=== PATIENT | male | born 1935 | race Caucasian/White ===

== ENCOUNTER → 2017-10-02 | Outpatient (CLI) | payer MEDICARE, BC ==
--- NOTE | 2017-10-02 12:29 | RADIOLOGY REPORT (SQ) ---
EXAM DESCRIPTION: CT CHEST WITHOUT COMPLETED DATE/TIME: 10/02/2017 10:42 am REASON FOR STUDY: COPD (J44.9), CHEST PAIN (R07.9), CARRILLO (R06.00), BRONCHITIS (J40), ASBESTOS R91.8 OTHER NONSPECIFIC ABNORMAL FINDING OF LUNG FIELD R07.9 CHEST PAIN, UNSPECIFIED COMPARISON: 04/01/2015 TECHNIQUE: CT scan performed of the chest without intravenous contrast. Images reviewed with lung, soft tissue and bone windows. Reconstructed coronal and sagittal MPR images reviewed. All images st ored on PACS. All CT scanners at this facility use dose modulation, iterative reconstruction, and/or weight based d osing when appropriate to reduce radiation dose to as low as reasonably achievable (ALARA). [facility]: Dose Right [facility]: CareDose [facility]: Dose Right [facility]: Teradose 4D [facility]: [employer] RADIATION DOSE: CT Rad equipment meets quality standard of care and radiation dose reduction techniq ues were employed. CTDIvol: 15.4 mGy. DLP: 622 mGy-cm. mGy. LIMITATIONS: No technical limitations. FINDINGS: LUNGS AND PLEURA: Stable 11 mm nodule lateral to the right heart border. No new nodules. Calcified pleural plaques. No effusions. HILAR AND MEDIASTINAL STRUCTURES: No identified masses or abnormal nodes. No obvious aneurysm. HEART AND VASCULAR STRUCTURES: No aneurysm. No pericardial effusion. UPPER ABDOMEN: No significant findings. Limited exam. THYROID AND OTHER SOFT TISSUES: No masses. No adenopathy. BONES: No significant finding. HARDWARE: None in the chest. OTHER: No other significant findings. IMPRESSION: Stable right middle lobe nodule. TECHNICAL DOCUMENTATION: JOB ID: [id number] Quality ID # [id number]: Final reports with documentation of one or more dose reduction techniques (e.g., Au tomated exposure control, adjustment of the mA and/or kV according to patient size, use of iterative reconstruction technique) 2010 [employer]- All Rights Reserved
== END ==
LOC: RAD 09:57
PROVIDERS: ATTEND Internal Medicine Critical Care Medicine
DX: J40 Bronchitis, not specified as acute or chronic (principal); G47.30 Sleep apnea, unspecified; R91.8 Other nonspecific abnormal finding of lung field; R07.9 Chest pain, unspecified; J45.40 Moderate persistent asthma, uncomplicated; J44.9 Chronic obstructive pulmonary disease, unspecified; R06.00 Dyspnea, unspecified; Z77.090 Contact with and (suspected) exposure to asbestos
CPT/HCPCS: 71250

== ENCOUNTER 2020-07-23 20:21 | Emergency (ER) | payer MEDICARE, BC ==
--- NOTE | 2020-07-23 20:47 | ER Document Report ---
ED Medical Screen (RME) - General Chief Complaint: Fall Stated Complaint: FALL/ FACIAL INJURY Time Seen by Provider: 07/23/20 20:37 Primary Care Provider: NGOC COVARRUBIAS MD [Primary Care Provider] - Follow up as needed Mode of Arrival: Wheelchair Information source: Patient, Relative Notes: 85-year-old male presented to ED for complaint of neck face and head pain. He states he was walking lost his balance and face planted. He does have multiple abrasions and contusions to the face. He complains of neck pain some torticollis and head pain. He states he does not smoke but he does drink daily sometimes beer and whiskey nightly he has 2 shots of whiskey. He states he does have a history of high cholesterol blood pressure high blood pressure gout arthritis and sleep apnea. He states he has no idea how his goal uses BiPAP tonight with the injuries to his face. He is alert oriented respirations regular nonlabored speaking in full sentences. I have greeted and performed a rapid initial assessment of this patient. A comprehensive ED assessment and evaluation of the patient, analysis of test results and completion of medical decision making process will be conducted by an additional ED providers. TRAVEL OUTSIDE OF THE [place] IN LAST 30 DAYS: No - Related Data Allergies/Adverse Reactions: No Known Allergies Allergy (Unverified 05/15/14 15:37) Past Medical History - Social History Frequency of alcohol use: Social - Past Medical History Cardiac Medical History: Reports: Hx Hypercholesterolemia, Hx Hypertension Pulmonary Medical History: Denies: Hx Tuberculosis Endocrine Medical History: Reports: Hx Diabetes Mellitus Type 2 Psychiatric Medical History: Denies: Hx Depression Physical Exam - Vital signs Vitals: Temp Pulse Resp BP Pulse Ox 99 F 85 24 H 133/59 H 94 07/23/20 20:34 07/23/20 20:34 07/23/20 20:34 07/23/20 20:34 07/23/20 20:34 Course - Vital Signs Vital signs: Temp Pulse Resp BP Pulse Ox 99 F 85 24 H 133/59 H 94 07/23/20 20:34 07/23/20 20:34 07/23/20 20:34 07/23/20 20:34 07/23/20 20:34 Doctor's Discharge - Discharge Referrals: NGOC COVARRUBIAS MD [Primary Care Provider] - Follow up as needed
--- NOTE | 2020-07-23 22:04 | RADIOLOGY REPORT (SQ) ---
EXAM DESCRIPTION: CT HEAD WITHOUT IV CONTRAST COMPLETED DATE/TME: 07/23/2020 20:44 CLINICAL HISTORY: 85 years Male Fall face head neck pain COMPARISON: None. TECHNIQUE: Contiguous axial CT images obtained through the brain without IV contrast. This exam was performed according to our department optimization program which includes automated exposure control, adjustment of the mA and/or kv according to patient size and/or use of iterative reconstruction technique. FINDINGS: The ventricles and sulci are prominent consistent with atrophic changes. Microvascular ischemic changes. No midline shift or mass effect. No mass lesions. No acute hemorrhage. Atherosclerotic calcifications. Irregularity of the tip of the nasal bones consistent with acute fracture. No fluid or significant mucosal thickening in the visualized paranasal sinuses. No depressed calvarial fractures. IMPRESSION: Acute fracture of the tip of the nasal bones No acute intracranial abnormality is identified. Generalized atrophy with microvascular ischemic changes.
--- NOTE | 2020-07-23 22:07 | RADIOLOGY REPORT (SQ) ---
EXAM DESCRIPTION: CT CERVICAL SPINE WITHOUT IV CONTRAST COMPLETED DATE/TME: 07/23/2020 20:43 CLINICAL HISTORY: 85 years Male Fall face head neck pain COMPARISON: None. TECHNIQUE: Contiguous axial images obtained through the cervical spine without IV contrast. Coronal and sagittal reformatted images obtained. This exam was performed according to our department optimization program which includes automated exposure control, adjustment of the mA and/or kv according to patient size and/or use of iterative reconstruction technique. FINDINGS: Vertebral body alignment is unremarkable. No acute fractures. Study is significantly limited by patient's body habitus. C2-3: Bilateral neural foraminal narrowing. C3-4: Moderate central canal and severe bilateral neural foraminal stenosis. C4-5: Severe bilateral neural foraminal stenosis. C5-6: Severe bilateral neural foraminal stenosis worse on the right. C6-7: Generalized bulging of the disc with moderate central canal and severe neural foraminal stenosis. Severe neural foraminal stenosis also present in the upper thoracic spine. IMPRESSION: No acute cervical spinal fracture is identified. Limited study secondary to body habitus Multilevel degenerative change
--- NOTE | 2020-07-23 22:10 | RADIOLOGY REPORT (SQ) ---
EXAM DESCRIPTION: CT MAXILLOFACIAL WITHOUT IV CONTRAST COMPLETED DATE/TME: 07/23/2020 20:43 CLINICAL HISTORY: 85 years Male Fall face head neck pain COMPARISON: None. TECHNIQUE: Contiguous axial images obtained through the maxillofacial region without IV contrast. Reformatted images obtained. This exam was performed according to our department optimization program which includes automated exposure control, adjustment of the mA and/or kv according to patient size and/or use of iterative reconstruction technique. FINDINGS: The post septal orbits appear unremarkable. Minimal mucosal thickening in the paranasal sinuses. No air-fluid levels. Dental disease Orbits and maxillofacial bones appear intact. There is fragmentation of the tip of the nasal bones however I suspect that this may be chronic in nature. Anterior nasal spine is intact. 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 Acute injury is not entirely excluded Dental disease
[2020-07-23] MEDS ORDERED: ACETAMINOPHEN 325 MG TABLET PO ONE (22:56)
--- NOTE | 2020-07-23 23:05 | ER Document Report ---
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 Patient states he tripped on a gas line outside while walking to his car and fell forward landing on his face. Patient reports pain in his head, neck, and face. Patient reports history of HTN, DM, HLD, arthritis, and sleep apnea. TRAVEL OUTSIDE OF THE [place] IN LAST 30 DAYS: No - Related Data Allergies/Adverse Reactions: No Known Allergies Allergy (Unverified 05/15/14 15:37) Past Medical History - General Information source: Patient, Relative - Social History Smoking Status: Former Smoker Cigarette use (# per day): No Frequency of alcohol use: Social Family History: Reviewed & Not Pertinent - Past Medical History Cardiac Medical History: Reports: Hx Hypercholesterolemia, Hx Hypertension Pulmonary Medical History: Reports: Hx Sleep Apnea Endocrine Medical History: Reports: Hx Diabetes Mellitus Type 2 Musculoskeletal Medical History: Reports Hx Arthritis Psychiatric Medical History: Denies: Hx Depression Review of Systems - Review of Systems Constitutional: No symptoms reported EENT: No symptoms reported Cardiovascular: No symptoms reported Respiratory: No symptoms reported Gastrointestinal: No symptoms reported Genitourinary: No symptoms reported Male Genitourinary: No symptoms reported Musculoskeletal: See HPI, Neck pain, Other - Head, Face pain Skin: No symptoms reported Hematologic/Lymphatic: No symptoms reported Neurological/Psychological: No symptoms reported -: Yes All other systems reviewed and negative Physical Exam - Vital signs Vitals: Temp Pulse Resp BP Pulse Ox 99 F 85 24 H 133/59 H 94 07/23/20 20:34 07/23/20 20:34 07/23/20 20:34 07/23/20 20:34 07/23/20 20:34 - General General appearance: Appears well, Alert - HEENT Head: Other - mild sts around left eye. abrasions to nose with mild sts.. No: Atraumatic Pupils: PERRL Ears: Normal External canal: Normal Tympanic membrane: Normal Notes: Abrasions to the left forehead and nose. Soft tissue swelling above the left eye. - Respiratory Respiratory status: No respiratory distress Chest status: Nontender Breath sounds: Normal Chest palpation: Normal - Cardiovascular Rhythm: Regular Heart sounds: Normal auscultation Murmur: No - Abdominal Inspection: Normal Distension: No distension Bowel sounds: Normal Tenderness: Nontender - Back Notes: Mild tenderness with palpation to the paraspinal region. - Extremities General upper extremity: Normal inspection, Normal ROM. No: Edema General lower extremity: Normal ROM, Other - abrasions to both knees.. No: Edema Knee: Abrasion - bilateral knees - Neurological Neuro grossly intact: Yes Cognition: Normal Orientation: AAOx4 [place] Coma Scale Eye Opening: Spontaneous [place] Coma Scale Verbal: Oriented Shey Coma Scale Motor: Obeys Commands Shey Coma Scale Total: 15 Speech: Normal Sensory: Normal - Psychological Associated symptoms: Normal affect, Normal mood - Skin Skin Temperature: Warm Skin Moisture: Dry Skin Color: Normal Course - Re-evaluation Re-evalutation: 07/23/20 22:59 MDM A bit frail elderly male here with son after trip over line and fall tonight. Struck face on the ground. Abrasions to face and bilat knees. Nasal bone fx noted and djd in spine. He lives alone. Due to this no narcotics as he is a fall risk at baseline. Due to advanced age and likely frail bridging veins he was and is at increased risk for sdh and epidural hematoma. He is not on blood thinners and thankfully his ct of the brain is without evidence of ich. Discussed follow up with him and son and they both expressed understanding. - Vital Signs Vital signs: Temp Pulse Resp BP Pulse Ox 99 F 85 24 H 133/59 H 94 07/23/20 20:34 07/23/20 20:34 07/23/20 20:34 07/23/20 20:34 07/23/20 20:34 - Diagnostic Test Radiology reviewed: Reports reviewed Discharge - Discharge Clinical Impression: Abrasions of multiple sites Fall Qualifiers: Encounter type: initial encounter Qualified Code(s): W19.XXXA - Unspecified fall, initial encounter Contusion Qualifiers: Encounter type: initial encounter Contusion area: head Contusion of head detail: orbital tissues Laterality: left Qualified Code(s): S05.12XA - Contusion of eyeball and orbital tissues, left eye, initial encounter Condition: Stable Disposition: HOME, SELF-CARE Instructions: Abrasions ([facility]), Abrasions of the Face ([facility]), Contusion ([facility]), Fracture of the Nose ([facility]), Ice Massage ([facility]), Ice Packs ([facility]) Additional Instructions: Use ice. Take tylenol for pain. See your doctor in follow up. Call Tomorrow for follow up. Return here for chest pain, shortness of breath or other problems or concerns. Referrals: NGOC COVARRUBIAS MD [Primary Care Provider] - Follow up as needed I personally performed the services described in the documentation, reviewed and edited the documentation which was dictated to the scribe in my presence, and it accurately records my words and actions.
[2020-07-23 23:16] VITALS: BP 152/59
== END 2020-07-23 23:13 | disposition home or self-care (01) ==
LOC: ER 20:21
DX: S05.12XA Contusion of eyeball and orbital tissues, left eye, initial encounter (principal); S02.2XXA Fracture of nasal bones, initial encounter for closed fracture; S80.212A Abrasion, left knee, initial encounter; S80.211A Abrasion, right knee, initial encounter; M54.2 Cervicalgia; R51.9 Headache, unspecified; W01.0XXA Fall on same level from slipping, tripping and stumbling without subsequent striking against object, initial encounter; Y93.89 Activity, other specified; M47.812 Spondylosis without myelopathy or radiculopathy, cervical region; K08.9 Disorder of teeth and supporting structures, unspecified; I10 Essential (primary) hypertension; E11.9 Type 2 diabetes mellitus without complications; Z87.891 Personal history of nicotine dependence
CPT/HCPCS: 99285; 70450; 70486; 72125; A9270